=== PATIENT | female | born 1960 | race Caucasian/White ===

== ENCOUNTER → 2019-10-27 | Outpatient (CLI) | payer OTHER ==
[~2019-10-27] MED LIST: CALCIUM PO; DIPH50 PO; ENOX40I SC; MULVITA PO; MUSCLE RELAXER; NAPR500 PO; NAPR500EC PO; NITR100CA PO; OXYACE5T PO; PAIN PILL; PHENA200 PO; PRED20 PO; Percocet 10-321 EACH PO; RANI150 PO; VITAMIN D PO; WARF2 PO
[2019-11-02 13:58] LABS: Stool Occult Bld Immuno 1 Negative (NEGATIVE)
== END | disposition home or self-care (01) ==
LOC: LAB 08:49 → LAB SHORT 08:49 → LAB FUT 07-18 10:05
PROVIDERS: Nurse Practitioner Family
DX: Z12.11 Encounter for screening for malignant neoplasm of colon (principal)
CPT/HCPCS: G0328